=== PATIENT | female | born 1995 | race Caucasian/White ===

== ENCOUNTER → 2020-05-18 10:46 | Outpatient (CLI) | payer OTHER, SELFPAY ==
[2020-05-18 11:46] LABS: COVID19 -Nasal RAPID Negative (Negative)
== END ==
PROVIDERS: Family Provider Family Medicine; PCP Family Medicine; Visit Provider Nurse Practitioner
DX: J02.9 Acute pharyngitis, unspecified (principal); R05 Cough
CPT/HCPCS: 87635